=== PATIENT | male | born 1950 | race Caucasian/White ===

== ENCOUNTER → 2020-08-21 | Outpatient (CLI) | payer MEDICARE ==
--- NOTE | 2020-08-27 14:17 | REP ---
LEFT KNEE SERIES HISTORY: Pain. TECHNIQUE: Five views of the left knee are performed. FINDINGS: I see no evidence of acute fracture or dislocation. 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 There is mildly medial joint space narrowing with subchondral sclerosis. There is a moderate joint effusion. IMPRESSION: Bipartite patella. Mild degenerative changes medial joint space. Moderate joint effusion. MTDD
== END ==
LOC: M WUC 14:31
PROVIDERS: ATTEND Physician Assistant
DX: M25.562 Pain in left knee (principal); Q74.1 Congenital malformation of knee; M25.462 Effusion, left knee

== ENCOUNTER → 2020-11-17 | Outpatient (CLI) | payer SELFPAY | LOC: M LABSMTC 09:51 | PROVIDERS: ATTEND Pediatrics | DX: Z20.828 Contact with and (suspected) exposure to other viral communicable diseases (principal) ==

== ENCOUNTER → 2021-07-09 | Outpatient (REF) | payer MEDICARE ==
[2021-07-09 17:07] LABS: AMORPHOUS SEDIMENT SMALL (NEGATIVE); APPEARANCE, URINE TURBID (CLEAR); BACTERIA, URINE AUTO NEGATIVE (NEGATIVE); BILIRUBIN, URINE AUTO NEGATIVE (NEGATIVE); BLOOD, URINE BLOOD NEGATIVE (NEGATIVE); CALCIUM OXALATE CRYSTALS SMALL; COLOR, URINE AMBER (YELLOW); GLUCOSE, URINE (UA) AUTO NEGATIVE (NEGATIVE); INR 0.92; KETONE, URINE AUTO TRACE mg/dL (NEGATIVE); LEUKOCYTE ESTERASE, URINE AUTO NEGATIVE (NEGATIVE); MUCUS, URINE MODERATE (NEGATIVE); NITRITE, URINE AUTO NEGATIVE (NEGATIVE); PROTEIN, URINE AUTO NEGATIVE (NEGATIVE); PROTHROMBIN TIME 12.8 SECONDS (12.7-14.5); RBC, URINE AUTO 0 /HPF (0-3); SPECIFIC GRAVITY URINE AUTO 1.023 (1.002-1.035); SQUAMOUS EPITHELIAL CELL UR AU 0 /HPF (0-6); WBC, URINE AUTO 0 /HPF (0-3)
[2021-07-09 17:08] LABS: PARTIAL THROMBOPLASTIN TIME 27.1 SECONDS (25.9-37.0)
== END ==
LOC: M LAB REF 16:41
PROVIDERS: ATTEND Internal Medicine
DX: Z01.818 Encounter for other preprocedural examination (principal); Z79.01 Long term (current) use of anticoagulants

== ENCOUNTER → 2022-09-22 | Outpatient (CLI) | payer MEDICARE ==
[~2022-09-22] MED LIST: MONT10TA97 PO; MOTR200T44 PO
== END ==
LOC: M LABSMTC 09:19
PROVIDERS: ATTEND Anesthesiology
DX: Z01.818 Encounter for other preprocedural examination (principal); Z11.52 Encounter for screening for COVID-19

== ENCOUNTER 2022-09-25 09:03 | Day surgery (SDC) | payer MEDICARE ==
[~2022-09-25] VITALS: Ht 182.9 cm; Wt 96.6 kg
[~2022-09-25 09:03] MED LIST changes: +NS 1,000 ML IV ONE
[2022-09-25] MEDS ORDERED: LIDOCAINE 2% 100MG/5ML SDV (FOR ANES.) As Ordered ONE (10:10)
[2022-09-25] MEDS ORDERED: propofoL 200 MG/20 ML VIAL As Ordered ONE (10:10)
[2022-09-25 11:12] VITALS: BP 162/73
== END 2022-09-25 11:16 | disposition home or self-care (01) ==
LOC: M OPP 09:03
PROVIDERS: ATTEND Internal Medicine Gastroenterology
DX: Z83.71 Family history of colonic polyps (principal); K57.30 Diverticulosis of large intestine without perforation or abscess without bleeding; K64.0 First degree hemorrhoids; Z87.891 Personal history of nicotine dependence; Z79.1 Long term (current) use of non-steroidal anti-inflammatories (NSAID); Z79.899 Other long term (current) drug therapy; Z96.652 Presence of left artificial knee joint

== ENCOUNTER → 2023-07-22 | Outpatient (CLI) | payer MEDICARE ==
[~2023-07-22] MED LIST changes: -NS 1,000 ML IV ONE
== END ==
LOC: M WUC 09:42
PROVIDERS: ATTEND Physician Assistant Medical
DX: M54.50 Low back pain, unspecified (principal); R53.1 Weakness